=== PATIENT | female | born 1970 | race African-American/Black ===

== ENCOUNTER 2021-07-29 21:24 | Emergency (ER) | payer BC, OTHER ==
[~2021-07-29] VITALS: Ht 162.6 cm; Wt 68.0 kg
[2021-07-29] MEDS ORDERED: METHOCARBAMOL 500MG TABLET PO ONE (23:15)
[2021-07-29] MEDS ORDERED: HYDROCODONE/ACETAMINOPHEN 5/325MG TABLET PO ONE (23:15)
[2021-07-29 23:23] VITALS: BP 124/98
[2021-07-30] MEDS ORDERED: METH-773 MT (00:48)
[2021-07-30] MEDS ORDERED: NAPR500T7 MT (00:48)
[2021-07-30] MEDS ORDERED: BACITRACIN ZINC OINT UDPKT TOP ONE (01:00)
== END 2021-07-30 01:07 | disposition home or self-care (01) ==
LOC: ER 21:24
DX: S70.02XA Contusion of left hip, initial encounter (principal); T22.112A Burn of first degree of left forearm, initial encounter; S16.1XXA Strain of muscle, fascia and tendon at neck level, initial encounter; M79.18 Myalgia, other site; V49.40XA Driver injured in collision with unspecified motor vehicles in traffic accident, initial encounter; Y93.89 Activity, other specified; Y92.410 Unspecified street and highway as the place of occurrence of the external cause; Z98.890 Other specified postprocedural states
CPT/HCPCS: 73090; 73502; 73552; 73562; 99284